=== PATIENT | female | born 1985 | race Caucasian/White ===

== ENCOUNTER 2025-04-11 08:06 | Outpatient (CLI) | payer BC ==
[2025-04-11] VITALS (21 sets, daily range): BP systolic 106–149; BP diastolic 57–101; PULSE 82–104
--- NOTE | 2025-04-25 14:54 | CARDIOLOGY REPORT ---
DATE OF SERVICE: 04/11/2025 DICTATING PHYSICIAN: Durga Rudolph MD DESCRIPTION: The patient underwent tilt table testing per protocol. She complained of dizziness describing it as if "she was on a boat throughout the test." Clinically and hemodynamically, she remained stable. IMPRESSION: Negative head up tilt table test. Clinically and hemodynamically stable, although the patient complained that she felt as if though she was on a boat throughout the test. Durga uRdolph MD TID: [id number] RECEIPT: [id number] ALLEN/NISHANT
== END 2025-04-11 23:59 | disposition home or self-care (01) ==
LOC: CARD DIAG 08:06
PROVIDERS: ATTEND Family Medicine
DX: R55 Syncope and collapse (principal)
CPT/HCPCS: 93660

== ENCOUNTER 2025-06-04 18:08 | Inpatient (IN) | payer BC ==
[~2025-06-04] VITALS: Ht 167.6 cm; Wt 53.1 kg
--- NOTE | 2025-06-04 18:27 | Physician Documentation ---
History of Present Illness ~ Chief Complaint: Neck pain Stated Complaint: NECK PAIN/NUMBNESS Time Seen by MD: 18:22 HPI 39-year-old female presents to the ED with a complaint of neck pain in left arm pain with a burning cold like sensation. Denies any acute injury. She states that she has a MRI scheduled for the 1st in his being followed by rheumatology in the outpatient setting. She says they are doing lots of test to rule out any immune diseases however she is here in the ED this due to her ongoing symptoms are persistent and worsening. Denies any incontinence numbness but has severe pain that has gone unresolved Day of Onset: Jun 04, 2025 Medication Reconciliation Allergies: Coded Allergies: morphine (Verified Allergy, Unknown, 04/23/14) Scheduled Gabapentin (Neurontin), 1 CAP PO Q8H Past Medical History Past Medical History: Headache Lives In: Home Occupation: employed Review of Systems All Other Systems at this time: Reviewed and Negative ROS As stated above in the HPI, otherwise all systems are reviewed and negative. Physical Exam Vital Signs: Temperature: 98.2, Heart Rate: 87, Respiratory Rate: 16, BP: 180/1 14, Pulse Oximetry: 100, Weight: 53.090 Oxygen Flow Rate: 0 Physical Exam General: Alert, no apparent distress. Neck: Decreased range of motion secondary to pain,m tender to the left trapezius via palpation Cardiovascular: Regular rate and rhythm, no murmurs. Extremities: Normal range of motion, no deformity. Neurologic: Oriented x4. Normal reflexes Psychiatric: Normal mood and affect. Skin: Normal color, warm and dry. No edema, no ecchymosis. Progress Results/Orders Results/Orders Orders - ASHOK WU NP Cbc/Diff (06/04/25 18:29) Mri C Spine (06/04/25 ) Page Hospitalist (06/04/25 ) Man Diff (06/04/25 18:39) Completed Orders - ASHOK WU CARDROOM ATTENDANT BMP (06/04/25 18:29) Gabapentin Capsule (Neurontin Capsule) (06/04/25 18:30) Dexamethasone Inj (Decadron 10mg/Ml Inj) (06/04/25 18:31) ESR (06/04/25 18:55) C-Reactive Protein (06/04/25 18:39) Ketorolac Trometh 30mg/Ml Vial (Toradol (06/04/25 20:55) Hydrocodone/Apap 10/325 ([place] 10/325mg (06/04/25 20:55) Hgb A1c (06/04/25 18:39) MG (06/04/25 18:39) PHOS (06/04/25 18:39) TSH (06/04/25 18:39) Medications Received in ER Medications (Trade) Dose Ordered Sig/Emma Route PRN Reason Start Time Stop Time Status Last Admin Dose Admin (Neurontin capsule) 300 mg ONCE ONCE PO 06/04/25 18:30 06/04/25 18:32 DC 06/04/25 19:01 300 MG (Toradol inj. 30mg/ml) 30 mg ONCE ONCE IV 06/04/25 20:55 06/04/25 20:56 DC 06/04/25 21:08 30 MG Vital Signs 06/04/25 06/04/25 18:17 21:08 Temp 98.2 Pulse 87 Resp 16 16 B/P (MAP) 180/114 Pulse Ox 100 O2 Flow Rate 0 Laboratory Tests Test 06/04/25 18:39 White Blood Count 3.4 L Red Blood Count 4.55 Hemoglobin 13.5 Hematocrit 38.6 Mean Corpuscular Volume 85.0 Mean Corpuscular Hemoglobin 29.6 Mean Corpuscular Hemoglobin Concent 34.8 Red Cell Distribution Width 13.6 Platelet Count 180 Mean Platelet Volume 8.5 Neutrophils (%) (Auto) 47.9 Lymphocytes (%) (Auto) 41.2 Monocytes (%) (Auto) 8.5 Eosinophils (%) (Auto) 1.2 Basophils (%) (Auto) 1.2 H Neutrophils # (Auto) 1.6 L Lymphocytes # (Auto) 1.4 Monocytes # (Auto) 0.3 Eosinophils # (Auto) 0.0 Basophils # (Auto) 0.0 CBC Comment Basophilic Stippling Erythrocyte Sedimentation Rate 7 Prothrombin Time 9.9 INR International Normalized Ratio 1.0 Activated Partial Thromboplast Time 27 Coagulation Comments Sodium Level 143 Potassium Level 3.8 Chloride Level 106 Carbon Dioxide Level 30.5 Anion Gap 7 L Blood Urea Nitrogen 9 Creatinine 0.85 Estimated GFR/1.73 m2 74 BUN/Creatinine Ratio 10.6 Glucose Level 98 Hemoglobin A1c 5.1 Calcium Level 8.4 L Phosphorus Level 3.0 Magnesium Level 2.2 C-Reactive Protein < 0.05 Albumin 4.0 Procalcitonin < 0.05 Thyroid Stimulating Hormone (TSH) 2.48 Chemistry Comments Medical Decision Making Additional information obtaine: old records Findings The patient is currently taking muscle relaxers on that she has been previously prescribed without much improvement to her neck pain. I offered gabapentin she states he did not get much improvement while in the ED. I also offered dexamethasone treatment for her neck pain which could be indicated in addition to having a suspected he immune compromise disease she declined this is well indicating that provider in the outpatient setting requested that she not take steroids for a better MRI imaging This time there was not much more to do for her in the ED. If she has not elevated sed rate or CRP Done neurology's recommendation we will order a cervical MRI without contrast for evaluation in addition we will admit her to the hospital for ongoing pain management and an MRI tomorrow Differential Dx:Considerations: Include: Cervical muscle spasm, Discitis, DJD, Meningitis, Thyroiditis, Torticollis, Vertebral artery dissect., Other Departure Disposition: ADMITTED INPATIENT Impression: Primary Impression: Neck pain Additional Impressions: Strain of neck muscle Neuropathy Condition: Stable Discharge Instructions: Cervical Sprain, Acute Torticollis, Adult Referrals: NO PRIMARY CARE PROVIDER (PCP) Prescriptions Gabapentin (Neurontin) 300 Mg Capsule 1 CAP PO Q8H for 30 Days, #90 CAP 0 Refills Prov: ASHOK WU NP 06/04/25 Education Educated: Patient Signature Scribe Signature: nancy Attestation: dScribed for Ashok Wu Corporate Specialist by Ashok Tian NP . 06/04/25 19:35 ASHOK WU NP Jun 04, 2025 18:27
[2025-06-04 18:52] LABS: MEAN PLATELET VOLUME 8.5 FL (7.4-10.4); RED CELL DISTRIBUTION WIDTH 13.6 % (11.5-14.5)
[2025-06-04] MEDS: dexamethasone sod phosphate 10mg/ml inj PO STA (18:58)
[2025-06-04 19:01] LABS: CREATININE 0.85 MG/DL (0.40-0.90); TOTAL CARBON DIOXIDE 30.5 MMOL/L (24-32); eCRCL 73 ML/MIN; eGFR 74 ML/MIN
[2025-06-04] MEDS ORDERED: GABA300C PO (19:34)
[2025-06-04] MEDS: HYDROcodone/acetaminophen 10/325mg tab PO ONE (20:55)
[2025-06-04] MEDS: ketorolac trometh 30MG/ML vial 30 MG/ML VIAL IV ONE (21:08)
--- NOTE | 2025-06-04 21:08 | [facility] CONSULT REPORT ---
[facility] Procedure Note [facility] Procedure Note Consult [facility] Note # Demographics Consult Type: General Neurology Patient Location: Emergency Room First Name: Kayleigh Last Name: Tim Date of : 1985 Age: 39 Gender: Female Facility: [facility] Time of Initial Page (): 06/04/2025 20:22 First Contact with Site (): 06/04/2025 20:22 # HPI History: 39 y/o F presents with severe neck pain radiating to bilat shoulders with burning pain LUE and LLE. # Exam Time of Exam (): 06/04/2025 20:45 Mental Status: - awake - alert and oriented x 3 - follows commands Language: - normal speech Cranial Nerves: - normal Motor: - normal strength Sensory: - normal sensation Cerebellar: - normal cerebellar exam # Assessment Impression: - Other neck pain with radiculopathy # Plan Imaging: (urgency: routine): - MRI C spine Therapy/Evaluation: - PT/OT evaluation Medication: tylenol 1gm TID scheduled toradol 30mg IV TID scheduled start gabapentin 200mg TID; titrate as needed and tolerated Other: - If patient has any neurological deterioration please call me back immediately # Logistics Attestation of consult completion: The patient is located at: [facility]. Facility staff participated in the visit. I performed this telemedicine visit from my offsite office utilizing interactive 2 way audio and visual telecommunication technology at the request of the onsite emergency room provider. Total time spent in telemedicine encounter: I spent 30 minutes reviewing clinical data and/or imaging, obtaining history, examining the patient, communicating with the onsite care team, and in preparation of this report. # Demographics First Name: Kayleigh Last Name: Tim Facility: [facility] Electronically signed at 06/04/2025 21:07 () by Simona Coker DO Neuro Consult Order placed for: CATALINO Gramajo DO Jun 04, 2025 21:08
[2025-06-04] MEDS ORDERED: magnesium Cl slow-release 64mg tablet PO PRN (22:20)
[2025-06-04] MEDS ORDERED: mag hydrox/Alum hydrox/simeth 30ml oral suspension PO PRN (22:20)
[2025-06-04] MEDS ORDERED: magnesium sulf-water 4G/100mL 100 ML IV PRN (22:20)
[2025-06-04] MEDS ORDERED: magnesium hydroxide 30ml (MOM) UD suspension PO PRN (22:20)
[2025-06-04] MEDS ORDERED: potassium Cl 40MEQ/1/2NS 520ml 520 ML IV PRN (22:20)
[2025-06-04] MEDS ORDERED: ondansetron/PF 4mg/2ml inj IV PRN (22:20)
[2025-06-04] MEDS ORDERED: potassium Cl 20 mEq SR tablet PO PRN (22:20)
[2025-06-04] MEDS ORDERED: magnesium sulf-water 2g/50mL 50 ML IV PRN (22:20)
--- NOTE | 2025-06-04 22:35 | HISTORY AND PHYSICAL-Residence ---
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 Pt endorsed that she has been having the neck pain and stiffness especially on the left side over 2 days which become progressive and associated with the shooting burning through her shoulder blades and spread to the UE and LE. The pain was not electrical sensation but burning cold feeling without noticing any new changes in her visual field. She reported for the new right and left shooting pain up to her bilateral feet starting from her buttocks over 2 days. She also noticed with the photosensitivity which was proceeding her neck pain with radiculopathy. She denied for any fever with chills and rigors, any abnormal skin rashes, new joints pain and inflammation. She recently went to the [facility] for camping a week ago and no sick contact history. She denied for any paresthesia around the perianal and perineum areas, urinary and a bladder incontinence, foot dropping or new abnormal gaits, FND, tingling and numbness extremities, and bladder distention except for the so called constipation as she missed one BM for her daily ones. Denied for any throbbing headaches, nausea and vomiting. She has been having the chronic dizziness but it got worse over these two days. She denied for any recent trauma or falls injuried to the spine and back. Denied for any histories of blood dyscrasia, malignancy and its treatment, and recurrent CVA. She just had her regular menstrual period within the last 14 days and own a record for one time miscarriage which was less than 10 weeks. Allergies: Coded Allergies: morphine (Verified Allergy, Unknown, 04/23/14) Home Medications Home Medications Active Neurontin (Gabapentin) 300 Mg Capsule 1 Cap PO Q8H 30 Days Past Medical History Past Medical History chronic migraine, atypical migraine/ amaurosis fugax like reaction on the left eye, tentative diagnosis of Sjogren's syndrome and Lupus/ autoimmune disorders, chronic neck and headaches, chronic back pain, and anxiety, reaction to the flu vaccination, non-specific Lymphadenopathy history, and one time miscarriage. Her family run some various autoimmune disorders including Croh's Celiac disease, Thyroid disorders, Psoriasis etc. She denied to use Codine and narcotics and opioids meds. Past Surgical History Surgical History Comment No significant past surgical history Past Social History Social History Comment Her PCP is at the [facility], she is currently going to [facility] Rheumatology for her autoimmune disorder with tentative diagnosis of Sjogren's syndrome versus lupus, one time visited to neurologist at the [facility]. 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 She is currently living with her and has one daughter and twins. She denied for smoking tobacco, marijuana, and using illicit drugs. She could not tolerate drinking alcohol especially wine. Lives In: Home Occupation: employed ROS All Other Systems: Reviewed and Negative ROS Constitutional: No fever, chills, weight gain or loss Eyes: No pain, erythema, discharge, blurring of vision ENT: No sore throat, epistaxis, tinnitus Cardiovascular: No chest pain, chest pressure, chest discomfort, palpitations, syncope, lower extremity edema, paroxysmal nocturnal dyspnea Respiratory: No shortness of breath, cough, hemoptysis Gastrointestinal: Normal appetite. No nausea, vomiting, diarrhea, constipation, hematemesis, abdominal pain, bloating, melena or fresh blood Genitourinary: No frequency, urgency, nocturia, hematuria or dysuria Musculoskeletal: No arthralgias or myalgias Integumentary: No change in skin, hair, nails. No swelling, bruising, abrasions Neurologic: No weakness Psychiatric: No delusions, depression, loss of interest in normal activity or change in sleep pattern, hallucinations, suicidal ideations Endocrine: No fatigue, weakness, polydipsia, polyuria, change in appetite, heat or cold intolerance, sweating, dry skin Hematological: No bleeding, petechiae, bruising Allergies: No asthma or urticaria Exam Vitals: Vital Signs Date Time Temp Pulse Resp B/P (MAP) Pulse Ox O2 Delivery O2 Flow Rate FiO2 06/04/25 21:08 16 06/04/25 18:17 98.2 87 180/114 100 0 General: General: Well alert, well oriented, not confused, not agitated, not in acute distress, well cooperated during the physical. HEENT: HEENT: Conjunctive are pink, sclerae clear, no icterus, pupil is equal in both sides, reactive to light, no ear discharge, no pharyngeal erythema or an edema, mouth and lips are dry. Neck: Neck: Supple and no stiffness, no JVD, no lymphadenopathy and thyromegaly. 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 NO neck stiffness and no Kernig and Brudzinski sign. slight decrease in the left hand scientific advisor but no power deficits on the left. The neck was tender when she use her back and lower extremities. Musculoskeletal: Musculoskeletal: No joint swelling, deformities, inflammations, and no scoliosis and back tenderness. 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 # Neck pain with radiculopathy -Given history of underlying autoimmune disorders, chronic head and neck pain, pt was admitted to the hospital for further investigations to rule out other potential diagnoses including MS Vs Spinal cord compression with radiculopathy from the possible Cervical spine pathology Vs Infectious diseases e.g. Lymes, Syphilis, Meningitis etc. -Ruled out the possible Aortic dissection with the no significant difference in BP between both arms ( Rt 141/95 mmHg, and Lt 150/89mmHg). -Normal ESR CRP and procal -In ER, pt was consulted with teleneurology recommended for MRI cervical spine Plan:- control the pain with IV Toradol 15 mg TID, PO Tylenol 650 mg TID and PO Gabapentin 200 mg TID, avoid using the narcotics, and opioids -Neuro monitoring and Teleneurology if new abnormal will be recorded -Falls precaution -MRI brain and MRI cervical spine without contrast -Pending Lyme and Syphilis serology -to consider the possible LP for possible MS Dx and meningitis etiologies if there will be normal imaging and serologies. 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 # Autoimmune with Sjogren's syndrome -Refer to the [facility] Rheum clinics to follow up # Anxiety -refused to take any meds CODE STATUS: Full code DVT prophylaxis: SC heparin 5000 units b.i.d. Analgesia/sedation: Tylenol, Toradol and gabapentin as needed Lines/tubes: PIV GI prophylaxis: Famotidine Nutrition: Regular Prognosis: Guarded Disposition: Continue medical management with pain control, neuro monitoring, pending imaging and labs, PT eval and DC plan. Resident MD attestation: Patient was seen, examined and discussed with attending MD, Dr. Durga FAUSTIN MD Internal Medicine Resident, PGY3 [facility] Date of Service: Jun 04, 2025 Billing Provider: TIFFANIE NORTON MD Addendum Attestation I agree with the residents assessment and plan as below: 39 year old female admitted with neck pain and pain in the UEs with concern for MS Plan: neuro consult MRI brain mri neck gabapentin for pain control lyme and syphillis serologies CCT 50 min using HIPPA compliant A/V technology TWYLA FAUSTIN, RES Jun 04, 2025 22:35 TIFFANIE NORTON MD Jun 07, 2025 04:20
[2025-06-04 22:40] LABS: APTT 27 SECONDS (22-32); INR 1.0 INR
[2025-06-04 23:02] LABS: PHOSPHORUS 3.0 MG/DL (2.3-4.5)
[2025-06-04 23:34] LABS: HIV ANTIBODY 1&2 RAPID NON-REACTIVE (Neg)
[2025-06-05 00:01] LABS: SYPHILIS SCREENING TEST POC NEGATIVE (Negative)
[2025-06-05 00:11] LABS: URINE HCG NEGATIVE (NEG)
[2025-06-05 00:22] LABS: URINE AMPHETAMINE SCREEN NEGATIVE (Neg); URINE BARBITUATE SCREEN NEGATIVE (Neg); URINE BENZODIAZEPINES SCREEN NEGATIVE (Neg); URINE CANNABINOID SCREEN NEGATIVE (Neg); URINE COCAINE SCREEN NEGATIVE (Neg); URINE METHADONE SCREEN NEGATIVE (Neg); URINE OPIATE SCREEN NEGATIVE (Neg); URINE PHENCYCLIDINE SCREEN NEGATIVE (Neg)
[2025-06-05 00:25] LABS: LEUKOCYTE ESTERASE ,URINE NEGATIVE (Neg); NITRITES, URINE NEGATIVE (Neg); OCCULT BLOOD,URINE NEGATIVE (Neg)
[2025-06-05 00:26] LABS: UA COLLECTION TYPE CLN CATCH MIDSTREAM
[2025-06-05 00:44] LABS: EOSINOPHILS % (MANUAL) 2.0 % (0-6); LYMPHOCYTES % (MANUAL) 40.0 % (21-51); MONOCYTES % (MANUAL) 4.0 % (2-12); NEUTROPHILS % (MANUAL) 54.0 % (42-75)
[2025-06-05 00:45] VITALS: BP 115/70; PULSE 73; RESP 14; TEMP 97.2; O2SAT 99
[2025-06-05 00:45] LABS: PLATELET ESTIMATE NORMAL
[2025-06-05] MEDS ORDERED: SUMA100T16 PO (00:52)
[2025-06-05 04:48] LABS: MEAN PLATELET VOLUME 8.3 FL (7.4-10.4); RED CELL DISTRIBUTION WIDTH 13.5 % (11.5-14.5)
[2025-06-05 04:59] LABS: CHOL/HDL RATIO 4.9 (0.00-4.99); CREATININE 0.64 MG/DL (0.40-0.90); LDL CHOLESTEROL 106 MG/DL (50-100); TOTAL CARBON DIOXIDE 28.9 MMOL/L (24-32); eCRCL 97 ML/MIN; eGFR > 90 ML/MIN
[2025-06-05 06:00] VITALS: BP 118/82; PULSE 65; RESP 12; TEMP 97.4; O2SAT 98
[2025-06-05] MEDS: docusate sod 100mg capsule PO SCH (08:00)
[2025-06-05] MEDS: heparin, porcine 5000 units/ml vial SQ SCH (08:00)
[2025-06-05] MEDS: K and/or MAG REPLACEMENT MC SCH (08:00)
[2025-06-05] MEDS: ketorolac trometh 15mg/ml vial 15 MG/ML ML IV SCH (09:35)
[2025-06-05 10:00] VITALS: BP 150/90; PULSE 80; RESP 16; TEMP 98.5; O2SAT 100
[2025-06-05] MEDS: diazepam inj 5 MG/ML inj. IV ONE (17:14)
[2025-06-05 18:00] VITALS: BP 144/93; PULSE 73; RESP 18; TEMP 98; O2SAT 100
--- NOTE | 2025-06-05 18:10 | PROGRESS NOTE ---
Daily Progress Note Providers to CC ~ Antibiotic Timeout Antibiotic Ordered?: No Subjective Patient was seen in her room in presence of her and nursing staff today. Patient mentioned that she has this neck pain which shoots towards the left upper extremity. She has neck pain going on since February 2024 in she had workup done in outpatient setting with PCP. She feels she might be having MS and requested MRI head to be ordered. Patient is waiting to get this cervical spine MRI in due to anxiety issues requested anxiety medication. She also mentioned she is not working since February 2024 but not on disability and on leave from work. She mentioned about her other medical problem which is mentioned in H and P by admitting provider. All questions and concerns answered to the best of my professional knowledge in visit today . Objective Vital Signs Date Time Temp Pulse Resp B/P (MAP) Pulse Ox O2 Delivery O2 Flow Rate FiO2 06/05/25 17:14 12 06/05/25 08:00 Room Air 06/05/25 06:00 97.4 65 118/82 (94) 98 06/05/25 02:28 0.0 Result Diagram: 06/05/25 0427 06/05/25 0427 General-patient not in any acute distress, alert awake oriented, age- appropriate, looks comfortable HEENT-atraumatic normocephalic, neck supple without elevated JVD, no thyromegaly or carotid bruit. No lymphadenopathy bilaterally. No neck rigidity on neck exam normal flexion, extension and rotation Eyes-no icterus or pallor seen in eyes Chest-clear to auscultation bilaterally, breathing nonlabored no tachypnea, no wheezing, no crepitation, no crackles. Heart-S1-S2 normal, regular heart rate no murmur Abdomen bowel sounds positive on auscultation, soft nondistended nontender no guarding, no rigidity Skin no active skin rash Neurology-grossly intact, nonfocal alert awake oriented. 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 # Neck pain with radiculopathy -Given history of underlying autoimmune disorders, chronic head and neck pain, pt was admitted to the hospital for further work up -Normal ESR CRP and procal -In ER, pt was consulted with teleneurology recommended for MRI cervical spine Plan:- control the pain with IV Toradol 15 mg TID, PO Tylenol 650 mg TID and PO Gabapentin 200 mg TID, avoid using the narcotics, and opioids -Neuro monitoring and Teleneurology if new abnormal will be recorded -Falls precaution -MRI brain and MRI cervical spine without contrast -Pending Lyme and Syphilis serology # Non-specific Leucopenia- will monitor -ANC 1.6, Bso 1.2 -Pure Leucopenia w no apparent lypmphopenia # Hx of migraine Patient needs follow-up with Neurology specialist for the maintaince therapy and abortive therapy. # other comorbidities Autoimmune with Sjogren's syndrome , Anxiety Patient's current condition is guarded incoming hospitalist team we will continue to follow patient in a.m. further management depending on results of diagnostic studies. Date of Service: Jun 05, 2025 Billing Provider: SAIDA CASTRO MD Common Visit Codes: [id number] INP/OBS CARE(HIGH) SAIDA CASTRO MD Jun 05, 2025 18:10
--- NOTE | 2025-06-05 20:01 | RADIOLOGY REPORT ---
EXAM: MR MRI HEAD HISTORY: stroke like symptoms TECHNIQUE: Multiplanar and multisequence MR imaging of the head was performed. Before and after the administration of intravenous contrast. 13 mL Clariscan was injected intravenously. COMPARISON: None FINDINGS: The ventricles and subarachnoid spaces are normal in size and configuration. Brain parenchyma is normal in signal. There is no midline shift or mass effect. The vascular flow-voids are unremarkable. No enhancing intracranial lesion. Diffusion weighted imaging is not indicative of acute or recent infarct. Mucosal thickening of the left maxillary sinus IMPRESSION: 1. Normal MRI of the brain.
--- NOTE | 2025-06-05 20:11 | RADIOLOGY REPORT ---
PROCEDURE: MR MRA HEAD INDICATION: headache 06/05/2025 05:34 PM COMPARISON: MR MRI HEAD on DOS: 06/05/25 TECHNIQUE: MRA head without intravenous contrast. 3D image postprocessing was performed on a dedicated workstation and images were used for interpretation and reporting. FINDINGS: MRA head: There is preserved enhancement within the bilateral distal internal carotid arteries. There is preserved enhancement within the anterior and middle cerebral arteries. There is preserved enhancement within the vertebral arteries, basilar artery, cerebellar arteries and posterior cerebral arteries. Dominant left vertebral artery There is no evidence of hemodynamically significant intracranial stenosis, proximal occlusion or aneurysm. No abnormal venous signal is seen. IMPRESSION: 1. No evidence of hemodynamically significant intracranial stenosis, proximal occlusion or aneurysm.
[2025-06-05] MEDS: GADOTERATE MEGLUMINE 7.5 MMOL/15 ML VIAL IV ONE (20:35)
[2025-06-05] MEDS: potassium Cl 20 mEq SR tablet PO PRN (20:41)
--- NOTE | 2025-06-05 20:41 | RADIOLOGY REPORT ---
PROCEDURE: MR MRI C SPINE INDICATION: neck pain with neuropathy EXAM DATE: 06/05/2025 05:34 PM COMPARISON: None TECHNIQUE: MRI cervical spine with and without intravenous contrast. FINDINGS: The cervical alignment is intact. The vertebral body heights and marrow signal are within normal limits. The visualized posterior fossa and craniocervical junction are intact. The intrinsic cervical cord signal appears intact. There is no prevertebral soft tissue swelling. The visualized paraspinal soft tissues are otherwise unremarkable. Relatively mild degenerative disc disease throughout the cervical spine with disc desiccation and minimal disc height loss. The following axial levels are detailed below: C2-C3: Unremarkable. C3-C4: Mild diffuse posterior disc bulge indenting the anterior thecal sac. No central canal narrowing. No significant foraminal narrowing. C4-C5: Mild diffuse posterior disc osteophyte complex indenting the thecal sac. No central canal narrowing. No foraminal narrowing. C5-C6: Mild diffuse posterior disc bulge indenting the anterior thecal sac. No central canal narrowing. No significant foraminal narrowing. C6-C7: Mild diffuse posterior disc bulge indenting the anterior thecal sac. No central canal narrowing. No foraminal narrowing. C7-T1: Mild diffuse posterior disc bulge indenting the anterior thecal sac. No central canal narrowing. No foraminal narrowing. No abnormal enhancement. IMPRESSION: Relatively mild degenerative disc disease with no significant central canal or foraminal stenosis.
[2025-06-05 22:00] VITALS: BP 102/62; PULSE 79; RESP 13; TEMP 98; O2SAT 99
[2025-06-06 04:57] LABS: MEAN PLATELET VOLUME 8.4 FL (7.4-10.4); RED CELL DISTRIBUTION WIDTH 13.7 % (11.5-14.5)
[2025-06-06 05:26] LABS: CREATININE 0.68 MG/DL (0.40-0.90); TOTAL CARBON DIOXIDE 28.4 MMOL/L (24-32); eCRCL 91 ML/MIN; eGFR > 90 ML/MIN
[2025-06-06 06:00] VITALS: BP 122/70; PULSE 77; RESP 14; TEMP 98; O2SAT 99
--- NOTE | 2025-06-06 09:48 | PROGRESS NOTE ---
Daily Progress Note Providers to CC ~ Antibiotic Timeout Antibiotic Ordered?: No Subjective Reports improvement in the pain Objective Vital Signs Date Time Temp Pulse Resp B/P (MAP) Pulse Ox O2 Delivery O2 Flow Rate FiO2 06/06/25 08:00 Room Air 06/06/25 07:44 16 06/06/25 06:00 98.0 77 122/70 (87) 99 06/05/25 20:00 0.0 Result Diagram: 06/06/25 0432 06/06/25 0432 Coagulation Studies Laboratory Tests Test 06/04/25 18:39 Prothrombin Time 9.9 SECONDS (9.0-12.0) INR International Normalized Ratio 1.0 INR Activated Partial Thromboplast Time 27 SECONDS (22-32) Coagulation Comments Problem\Assessment\Plan A 39 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 # Neck pain with radiculopathy : Continue gabapentin MRI brain is negative for any acute findings. # Hx of migraine Continue imitrex #Disposition Home Date of Service: Jun 06, 2025 Billing Provider: GUSTAVO MERAZ MD Common Visit Codes: 12632-RPY/OBS DISCH DAY <30MIN GUSTAVO MERAZ MD Jun 06, 2025 09:48
[2025-06-06 10:00] VITALS: BP 124/80; PULSE 83; RESP 16; TEMP 98.2; O2SAT 99
[2025-06-06] MEDS ORDERED: GABA-530 PO (14:00)
--- NOTE | 2025-06-06 14:14 | DISCHARGE SUMMARY ---
Discharge Summary Providers to CC ~ Discharge Summary Admission Diagnosis: Chronic Radiating Headaches Hospital Course DATE OF ADMISSION: 06/04/2025 DATE OF DISCHARGE: 06/06/2025 Discharge Diagnosis\Comment: Neck pain with radiculopathy Operations\Procedures: Head MRI Head MRA Consultants: None Complications: None Condition on DC: Stable New Medications: Gabapentin (Gabapentin) 100 Mg Capsule 200 MG PO TID for 15 Days, #60 CAP Continued Medications: Sumatriptan Succinate (Sumatriptan Succinate) 100 Mg Tablet 0.5-1 TAB PO Q2H PRN for MIGRAINE MDD 200 MG AT ONSET OF MIGRAINE NOT TO EXCEED MDD 200 MG MDD = MAX DAILY DOSE OF 200 MG Discharge Summary: Reason for admission: 39 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 Hospital course: Patient was admitted on the ortho floor under hospital course as follows. 1. Neck pain: Likely musculoskeletal. Patient was evaluated with a CT of the C-spine which showed mild degenerative disc disease with no significant central canal or foraminal stenosis. Patient is started on IV Toradol and gabapentin which improved her symptoms. Patient has been discharged on p.o. gabapentin. Recommend outpatient physical therapy/exercise program. 2. History of migraines: Continued on sumatriptan Discharge exam: I examined the patient on the day of discharge. Awake cooperative in no acute distress HEENT normocephalic atraumatic extraocular movements are intact Neck supple, no JVD Chest: Clear to auscultation, no wheezes crackles rhonchi Heart: Regular rate rhythm, no murmur or gallop rub Abdomen is soft, nontender, no organomegaly Extremities no cyanosis clubbing or edema Neuro exam is nonfocal. Disposition: Home *Problems/Diagnosis: (1) Neck pain Status: Acute Total Time Spent on D/C: > 30 Minutes Date of Service: Jun 06, 2025 Billing Provider: GUSTAVO MERAZ MD Common Visit Codes: 66289-DDA/OBS DISCH DAY <30MIN GUSTAVO MERAZ MD Jun 06, 2025 14:14
[2025-06-07 13:13] LABS: ANTINUCLEAR ANTIBODIES Positive (Negative)
== END 2025-06-06 14:30 | disposition home or self-care (01) | DRG 552 ==
LOC: ER 18:09 → ED HOLD 21:34 → ORTHO 4S 06-05 00:45
PROVIDERS: ADMIT Internal Medicine; ATTEND Internal Medicine
DX: M50.11 Cervical disc disorder with radiculopathy, high cervical region (principal); D72.819 Decreased white blood cell count, unspecified; M32.9 Systemic lupus erythematosus, unspecified; F41.9 Anxiety disorder, unspecified; G43.909 Migraine, unspecified, not intractable, without status migrainosus; M35.00 Sjogren syndrome, unspecified; G89.29 Other chronic pain; M54.9 Dorsalgia, unspecified; Z88.5 Allergy status to narcotic agent
CPT/HCPCS: 36415; 70544; 70553; 72156; 80048; 80053; 80061; 80305; 81003; 81025; 83036; 83735; 84100; 84132; 84145; 84443; 85007; 85025; 85610; 85651; 85730; 86038; 86140; 86617; 86703; 87081; 96374; 96375; 99285; G0378; J1644; J1885; J3360; L0172